=== PATIENT | male | born 1975 | race Caucasian/White ===

== ENCOUNTER 2022-09-12 18:18 | Emergency (ER) | payer MEDICAID ==
[~2022-09-12] VITALS: Ht 170.2 cm; Wt 83.9 kg
--- NOTE | 2022-09-12 19:05 | NUR ---
IV started, ekg done and orthopedic tech in room for cxr. pt resting comfirtably in bed, hard cervical collar applied.
[2022-09-12 19:14] LABS: HEMATOCRIT 38.5 % (36.7-47.1); MEAN CORPUSCULAR HEMOGLOBIN 28.5 uug (23.8-33.4); MEAN CORPUSCULAR VOLUME 83.5 fL (73.0-96.2); PLATELET COUNT (AUTO) 124 K/uL (152-348)
[2022-09-12 19:33] LABS: CARBON DIOXIDE 25 mmol/L (21-32); CHLORIDE 106 mmol/L (98-107); CREATININE 0.9 mg/dL (0.6-1.3); GLUCOSE 155 mg/dL (74-106); POTASSIUM 3.5 mmol/L (3.5-5.1); UREA NITROGEN, BLOOD 9 mg/dL (7-18)
[2022-09-12 19:42] LABS: ETHANOL 477 MG/DL (0-0)
[2022-09-12 19:46] LABS: ACETAMINOPHEN < 2.0 ug/mL (10-30); ALANINE AMINOTRANSFERASE 45 U/L (16-63); ALKALINE PHOSPHATASE 135 U/L (50-136); ASPARTATE AMINOTRANSFERASE 65 U/L (15-37); BILIRUBIN,DIRECT 0.1 mg/dL (0.0-0.2); BILIRUBIN,TOTAL 0.6 mg/dL (0.2-1.0); TOTAL PROTEIN, SERUM 8.4 g/dL (6.4-8.2)
[2022-09-12 20:12] LABS: *BILIRUBIN,URIN NEGATIVE (NEGATIVE); *CLARITY,URINE CLEAR (CLEAR); *COLOR,URINE YELLOW (YELLOW); *KETONES,URINE NEGATIVE (NEGATIVE); *UROBILINOGEN,URINE 0.2 E.U./dl (NORMAL); LEUKOCYTE ESTERASE ,URINE NEGATIVE (NEGATIVE); NITRITE, URINE NEGATIVE (NEGATIVE); UGLUCOSE NEGATIVE (NEGATIVE)
[2022-09-12 20:18] LABS: *AMPHETAMINE, URINE NEGATIVE (NEGATIVE); *BLOOD, URINE TRACE (NEGATIVE); *CANNABINOID, URINE NEGATIVE (NEGATIVE); *COCCAINE, URINE NEGATIVE (NEGATIVE); *OPIATE, URINE NEGATIVE (NEGATIVE); *PHENCYCLIDINE SCREEN,URINE NEGATIVE (NEGATIVE)
[2022-09-12 23:12] LABS: BACTERIA,URINE NONE SEEN /HPF (NONE SEEN); RBC,URINE NONE SEEN /HPF (0-3); SQUAMOUS EPITHELIAL CELL,UR NONE SEEN /HPF (NONE SEEN); WBC,URINE NONE SEEN /HPF (0-3)
--- NOTE | 2022-09-13 00:25 | NUR ---
PT. AWAKE AND REQUESTING JUICES. GIVEN. DOES NOT KNOW WHERE HE IS OR THE YEAR. STATES ITS "1974" . WANTS TO SLEEP. VS TAKEN AND DOCUMENTED
[2022-09-13] MEDS ORDERED: LACT10SO58 PO (04:30)
[2022-09-13] MEDS ORDERED: LACTULOSE 20 G/30 ML LIQUID UDC ONE (04:34)
[2022-09-13] MEDS ORDERED: IV NORMAL SALINE 1000 ML BAG IV ONE (04:45)
[2022-09-13] MEDS ORDERED: LACTULOSE 20 G/30 ML LIQUID UDC PO ONE (04:45)
--- NOTE | 2022-09-13 05:40 | NUR ---
Completed IVF infusion of NS.
--- NOTE | 2022-09-13 06:05 | NUR ---
Pt. discharged per order. .Pt. said he was going to a friends house and had to be there by 0700. Requested bus fare and left ambulating and briefly discussed f/u care with ER MD.
[2022-09-13 06:08] VITALS: BP 147/96
--- NOTE | 2022-09-15 05:40 | NUR ---
Maximilian thapa in ED - 09/15/22 at 1159 by MYOUABIAN Completede IVF infusion of NS.
== END 2022-09-13 06:10 | disposition home or self-care (01) ==
LOC: ER 18:25
DX: F10.121 Alcohol abuse with intoxication delirium (principal); Y90.8 Blood alcohol level of 240 mg/100 ml or more; E72.20 Disorder of urea cycle metabolism, unspecified; R91.8 Other nonspecific abnormal finding of lung field; Z20.822 Contact with and (suspected) exposure to COVID-19; R94.31 Abnormal electrocardiogram [ECG] [EKG]
CPT/HCPCS: 80076; 80048; 81001; 82140; 85025; 87426; 84484 ×2; 36415; 93005; 71045; 70450; 72125; 99285; 80299; 80320; 80307; 96360; J7040; G0480

== ENCOUNTER 2022-09-15 18:42 | Emergency (ER) | payer MEDICAID ==
[~2022-09-15] VITALS: Ht 162.6 cm; Wt 81.6 kg
[~2022-09-15 18:42] MED LIST: LACT10SO58 PO
[2022-09-15] MEDS ORDERED: IBUPROFEN 400 MG TABLET ONE (19:11)
[2022-09-15] MEDS ORDERED: IBUPROFEN 400 MG TABLET PO ONE (19:15)
[2022-09-15 19:31] LABS: HEMATOCRIT 36.9 % (36.7-47.1); MEAN CORPUSCULAR HEMOGLOBIN 28.2 uug (23.8-33.4); MEAN CORPUSCULAR VOLUME 83.3 fL (73.0-96.2); PLATELET COUNT (AUTO) 99 K/uL (152-348)
[2022-09-15 19:37] LABS: POTASSIUM 3.4 mmol/L (3.5-5.1)
[2022-09-15 19:43] LABS: BILIRUBIN,DIRECT 0.2 mg/dL (0.0-0.2); TOTAL PROTEIN, SERUM 8.1 g/dL (6.4-8.2)
--- NOTE | 2022-09-15 20:05 | NUR ---
Patient constantly getting out of bed, but is directable. Ambulating with steady gait, A/OX3. Dr Jensen into re eval patient.
--- NOTE | 2022-09-15 20:10 | NUR ---
Patient states wanting to be d/c'ed. Was encourage to states but insisted.
[2022-09-15] MEDS ORDERED: LACTULOSE 20 G/30 ML LIQUID UDC PO ONE (20:15)
--- NOTE | 2022-09-15 20:18 | NUR ---
Patient does not wish to proceed with medical care recommended by . (Dr Jensen ). Patient given information related to possible complications, up to and including , which could occur as a result of leaving the hospital at this time. Patient verbalizes understanding of risks involved due to leaving against medical advice. Patient has signed AMA form.
== END 2022-09-15 20:20 | disposition left against medical advice (07) ==
LOC: ER 18:43
DX: F10.129 Alcohol abuse with intoxication, unspecified (principal); Y90.8 Blood alcohol level of 240 mg/100 ml or more; E72.20 Disorder of urea cycle metabolism, unspecified; R51.9 Headache, unspecified; S00.12XA Contusion of left eyelid and periocular area, initial encounter; W19.XXXA Unspecified fall, initial encounter; Y92.89 Other specified places as the place of occurrence of the external cause; Z59.02 Unsheltered homelessness
CPT/HCPCS: 36415; 85025; A4663; G0480

== ENCOUNTER 2023-10-06 09:34 | Inpatient (IN) | payer MEDICAID ==
[~2023-10-06] VITALS: Ht 157.5 cm; Wt 79.4 kg
[~2023-10-06 09:34] MED LIST changes: +LACT10SO3 PO
[2023-10-06] MEDS ORDERED: IV NORMAL SALINE 1000 ML BAG IV ONE (09:45)
[2023-10-06] MEDS ORDERED: ONDANSETRON 4 MG/2 ML VIAL IV ONE (09:45)
[2023-10-06] MEDS ORDERED: PANTOPRAZOLE SODIUM 40 MG VIAL IV ONE (09:45)
[2023-10-06] MEDS ORDERED: MUPIROCIN 2% OINT 22 GM TUBE TP ONE (10:00)
[2023-10-06 10:03] LABS: BASOPHILS # (AUTO) 0.1 K/UL (0.0-0.2); EOSINOPHILS # (AUTO) 0.2 K/uL (0.0-0.7); EOSINOPHILS % (AUTO) 2.9 % (0.0-7.0); HEMATOCRIT 38.7 % (36.7-47.1); HEMOGLOBIN 12.7 g/dL (12.5-16.3); LYMPHOCYTES # (AUTO) 0.9 K/uL (0.8-4.8); LYMPHOCYTES % (AUTO) 12.3 % (20.5-51.5); MEAN CORPUSCULAR HGB CONC 33 g/dL (32.5-36.3); MEAN CORPUSCULAR VOLUME 85.6 fL (73.0-96.2); MONOCYTES # (AUTO) 1.4 K/uL (0.1-1.30); MONOCYTES % (AUTO) 19.1 % (0.0-11.0); NEUTROPHILS # (AUTO) 4.7 K/uL (1.8-8.9); NEUTROPHILS % (AUTO) 64.7 % (38.5-71.5); PLATELET COUNT (AUTO) 61 K/uL (152-348); RED BLOOD CELL COUNT(AUTO) 4.52 MIL/uL (4.06-5.63); RED CELL DISTRIBUTION WIDTH 15.9 % (12.1-16.2); WHITE BLOOD COUNT (AUTO) 7.3 K/uL (3.6-10.2)
[2023-10-06 10:42] LABS: CALCIUM 8.9 mg/dL (8.5-10.1); CREATININE 0.9 mg/dL (0.6-1.3); POTASSIUM 3.6 mmol/L (3.5-5.1)
[2023-10-06] MEDS ORDERED: SWABABLE VALVE TRANSFER SET EA MC ONE (11:08)
[2023-10-06] MEDS ORDERED: IV NORMAL SALINE 250 ML IV ONE (11:08)
[2023-10-06] MEDS ORDERED: IOHEXOL 300MG/ML 100 ML INFUS..BTL ONE (11:08)
[2023-10-06 11:57] LABS: DIFFERENTIAL COMMENT 1
[2023-10-06] MEDS ORDERED: PANTOPRAZOLE SODIUM 40 MG VIAL ONE (12:00)
[2023-10-06] MEDS ORDERED: ONDANSETRON 4 MG/2 ML VIAL ONE (12:00)
[2023-10-06 12:05] LABS: BILIRUBIN,DIRECT 0.5 mg/dL (0.0-0.2); BILIRUBIN,TOTAL 1.4 mg/dL (0.2-1.0)
[2023-10-06 12:06] LABS: ALBUMIN 3.6 g/dL (3.4-5.0); TOTAL PROTEIN, SERUM 8.3 g/dL (6.4-8.2)
[2023-10-06 14:43] LABS: *OCCULT BLOOD STOOL NEGATIVE (NEGATIVE)
[2023-10-06] MEDS ORDERED: LORAZEPAM 2 MG/1 ML VIAL IV PRN (17:15)
[2023-10-06 17:38] LABS: BASOPHILS % (MANUAL) 0 % (0-2); EOSINOPHILS % (MANUAL) 2 % (0-8); LYMPHOCYTES % (MANUAL) 15 % (20-40); MONOCYTES % (MANUAL) 8 % (2-10); NEUTROPHILS % (MANUAL) 65 % (42-75)
[2023-10-06 20:00] VITALS: BP 116/74; TEMP 99.2; O2SAT 96
[2023-10-06] MEDS: POTASSIUM CHLORIDE 20 MEQ in IV D5 1/2 NS 1000 ML 1,000 ML IV PRN (20:20)
[2023-10-06] MEDS: ONDANSETRON 4 MG/2 ML VIAL IV PRN (23:32)
[2023-10-06] MEDS: PANTOPRAZOLE SODIUM 40 MG VIAL IV SCH (23:32)
[2023-10-07 04:30] VITALS: BP 119/77; TEMP 98.7; O2SAT 98
[2023-10-07] MEDS: GUAIFENESIN/DEXTROMETHORPHAN 5 ML UDC PO PRN ×2 (05:12→11:41)
[2023-10-07 07:04] LABS: BASOPHILS # (AUTO) 0.1 K/UL (0.0-0.2); EOSINOPHILS # (AUTO) 0.2 K/uL (0.0-0.7); MEAN CORPUSCULAR HEMOGLOBIN 28.1 uug (23.8-33.4); MEAN CORPUSCULAR HGB CONC 33 g/dL (32.5-36.3); MONOCYTES # (AUTO) 1.1 K/uL (0.1-1.30); NEUTROPHILS % (AUTO) 62.8 % (38.5-71.5); RED BLOOD CELL COUNT(AUTO) 4.26 MIL/uL (4.06-5.63)
[2023-10-07 07:32] LABS: ALBUMIN 3.3 g/dL (3.4-5.0); BILIRUBIN,TOTAL 1.8 mg/dL (0.2-1.0); CALCIUM 8.5 mg/dL (8.5-10.1); CREATININE 1.1 mg/dL (0.6-1.3); MAGNESIUM 2.6 mg/dL (1.8-2.4); PHOSPHOROUS 3.2 mg/dL (2.5-4.9); POTASSIUM 3.7 mmol/L (3.5-5.1)
[2023-10-07 07:34] LABS: THYROID STIMULATING HORMONE 2.054 mIU/mL (0.358-3.740)
[2023-10-07 08:00] VITALS: BP 109/73; TEMP 98.5; O2SAT 96
[2023-10-07 08:18] VITALS: BP 109/73; TEMP 98.5; O2SAT 96
[2023-10-07 09:39] LABS: BASOPHILS % (AUTO) 1.3 % (0.0-2.0); EOSINOPHILS % (AUTO) 3.8 % (0.0-7.0); HEMATOCRIT 36.7 % (36.7-47.1); LYMPHOCYTES % (AUTO) 15.5 % (20.5-51.5); MEAN CORPUSCULAR VOLUME 86.2 fL (73.0-96.2); MONOCYTES % (AUTO) 16.6 % (0.0-11.0); NEUTROPHILS # (AUTO) 4.1 K/uL (1.8-8.9); PLATELET COUNT (AUTO) 56 K/uL (152-348); RED CELL DISTRIBUTION WIDTH 16.2 % (12.1-16.2); WHITE BLOOD COUNT (AUTO) 6.4 K/uL (3.6-10.2)
[2023-10-07 09:43] LABS: DIFFERENTIAL COMMENT 0
[2023-10-07 09:44] LABS: LYMPHOCYTES % (MANUAL) 0 % (20-40); NEUTROPHILS % (MANUAL) 0 % (42-75)
[2023-10-07] MEDS: POTASSIUM CHLORIDE 20 MEQ in IV D5 1/2 NS 1000 ML 1,000 ML IV PRN (10:14)
[2023-10-07] MEDS: MORPHINE SULFATE 2 MG/1 ML DISP.SYRIN IV PRN ×2 (10:15→21:01)
[2023-10-07] MEDS ORDERED: MULTIVITAMINS,THERAPEUTIC TABLET PO SCH (11:15)
[2023-10-07] MEDS ORDERED: THIAMINE HCL 100 MG TABLET PO SCH (11:15)
[2023-10-07] MEDS ORDERED: FOLIC ACID 1 MG TABLET PO SCH (11:15)
[2023-10-07 11:58] VITALS: BP 115/73; TEMP 98.3; O2SAT 95
[2023-10-07] MEDS: PANTOPRAZOLE SODIUM 40 MG VIAL IV SCH (12:14)
[2023-10-07] MEDS ORDERED: GUAIFENESIN/CODEINE 5 ML LIQUID UDC PO PRN (14:00)
[2023-10-07 16:05] VITALS: BP 128/72; TEMP 99.2; O2SAT 94
[2023-10-07] MEDS ORDERED: SWABABLE VALVE TRANSFER SET EA MC ONE (16:48)
[2023-10-07] MEDS ORDERED: IOHEXOL 300MG/ML 100 ML INFUS..BTL ONE (16:48)
[2023-10-07] MEDS ORDERED: IV NORMAL SALINE 250 ML IV ONE (16:49)
[2023-10-07 20:07] VITALS: BP 134/76; TEMP 102.9; O2SAT 94
[2023-10-07] MEDS ORDERED: MUPIROCIN 2% OINT 22 GM TUBE NS SCH (21:00)
[2023-10-07] MEDS: ONDANSETRON 4 MG/2 ML VIAL IV PRN (21:02)
[2023-10-07] MEDS ORDERED: CEFTRIAXONE 1 G in IV DEXTROSE 5% 50 ML IV SCH (23:00)
[2023-10-07] MEDS ORDERED: AZITHROMYCIN IV 500 MG in IV DEXTROSE 5% 250 ML IV SCH (23:00)
[2023-10-08] MEDS: PANTOPRAZOLE SODIUM 40 MG VIAL IV SCH (00:40)
[2023-10-08] MEDS ORDERED: SODIUM HYPOCHLORITE 0.125% (QUARTER STRENGTH) 473 ML BOTTLE TP SCH (09:00)
== END 2023-10-08 01:00 | disposition short-term general hospital (02) | DRG 280 ==
LOC: ER 09:34 → MED 17:56
PROVIDERS: ADMIT Internal Medicine; ATTEND Internal Medicine
DX: K70.30 Alcoholic cirrhosis of liver without ascites (principal); I85.11 Secondary esophageal varices with bleeding; J69.0 Pneumonitis due to inhalation of food and vomit; R04.2 Hemoptysis; D69.6 Thrombocytopenia, unspecified; L08.9 Local infection of the skin and subcutaneous tissue, unspecified; T14.8XXA Other injury of unspecified body region, initial encounter; X58.XXXA Exposure to other specified factors, initial encounter; Y92.89 Other specified places as the place of occurrence of the external cause; B19.20 Unspecified viral hepatitis C without hepatic coma; E66.9 Obesity, unspecified; Z68.32 Body mass index [BMI] 32.0-32.9, adult; F10.239 Alcohol dependence with withdrawal, unspecified; Y90.2 Blood alcohol level of 40-59 mg/100 ml; Z91.148 Patient's other noncompliance with medication regimen for other reason; Z59.00 Homelessness unspecified; Z87.891 Personal history of nicotine dependence; E11.65 Type 2 diabetes mellitus with hyperglycemia; F11.10 Opioid abuse, uncomplicated; K62.5 Hemorrhage of anus and rectum; J47.9 Bronchiectasis, uncomplicated
CPT/HCPCS: 36415; 70030-TC; 71260; 83550; 83690; 83735; 84100; 84443; 85025; 85730; 86850; 86900; 86901; 87040; 93005; A4606; C9113; G0378; G0480; J0456; J0696; J2060; J2270; J2405; J3480; J7050; Q9967